=== PATIENT | male | born 1990 | race Hispanic/Latino ===

== ENCOUNTER 2021-03-13 08:47 | Emergency (ER) | payer SELFPAY ==
[~2021-03-13] VITALS: Ht 177.8 cm; Wt 81.6 kg
[2021-03-13] MEDS ORDERED: 0.9%NACL 1000ML 1,000 ML IV ONE (09:00)
[2021-03-13] MEDS ORDERED: PANTOPRAZOLE 40 MG/VIAL IVP ONE (09:00)
[2021-03-13] MEDS ORDERED: MORPHINE 4 MG SYG IVP ONE (09:00)
[2021-03-13] MEDS ORDERED: ONDANSETRON 4MG INJ IVP ONE (09:00)
[2021-03-13 09:18] LABS: BASOPHILS % (AUTO) 0.3 % (0.0-5.0); EOSINOPHILS % (AUTO) 0.9 % (0.0-8.0); HEMATOCRIT 44.3 % (42-54); LYMPHOCYTES % (AUTO) 16.2 % (21.0-51.0); MEAN CORPUSCULAR HEMOGLOBIN 30.4 pg (27.0-33.0); MEAN CORPUSCULAR HGB CONC 33.9 g/dL (32.0-36.0); MEAN CORPUSCULAR VOLUME 89.9 fL (79-99); NEUTROPHILS % (AUTO) 79.3 % (40.0-77.0); PLATELET COUNT (AUTO) 224 K/uL (130-400); RED BLOOD CELL COUNT(AUTO) 4.93 MIL/uL (4.50-6.20); RED CELL DISTRIBUTION WIDTH 12.2 % (11.0-15.5); WHITE BLOOD COUNT (AUTO) 8.8 K/uL (4.8-10.8)
[2021-03-13 09:54] LABS: ALBUMIN 3.8 g/dL (3.5-5.0); BILIRUBIN,TOTAL 0.7 mg/dL (0.2-1.0); CREATININE 0.8 mg/dL (0.5-1.5); POTASSIUM 4.3 mmol/L (3.5-5.1); TOTAL PROTEIN, SERUM 6.8 g/dL (6.0-8.3)
[2021-03-13] MEDS ORDERED: DICY20TA2 PO (11:41)
[2021-03-13] MEDS ORDERED: ONDA4TAB10 PO (11:41)
[2021-03-13] MEDS ORDERED: ACET-66 PO (11:41)
[2021-03-13 12:24] VITALS: BP 132/83
== END 2021-03-13 13:01 | disposition home or self-care (01) ==
LOC: EDH 08:47
DX: R11.2 Nausea with vomiting, unspecified (principal); R10.13 Epigastric pain; Z79.899 Other long term (current) drug therapy
CPT/HCPCS: 36415; 71045; 74176; 80053; 82550; 83690; 84484; 85025; 93005; 96361; 96374; 96375; 99285; C9113; J2405; J7030